=== PATIENT | male | born 1965 | race Caucasian/White ===

== ENCOUNTER 2019-01-31 03:09 | Inpatient (IN) | payer OTHER ==
[2019-01-31] VITALS (7 sets, daily range): BP systolic 123–155; BP diastolic 64–79
[~2019-01-31] VITALS: Ht 180.3 cm; Wt 111.7 kg
[2019-01-31] MEDS ORDERED: ONDANSETRON HCL INJ 2MG/ML 2ML 2 MG/ML VIAL IV STA (03:14)
[2019-01-31] MEDS ORDERED: PANTOPRAZOLE 40 MG 10ML VIAL IV STA (03:14)
[2019-01-31] MEDS ORDERED: MORPHINE SULFATE INJ 4 MG/ML INJ 1ML IV ONE (03:15)
[2019-01-31] MEDS ORDERED: DICYCLOMINE HCL 20 MG/2 ML VIAL IM ONE (03:15)
[2019-01-31] MEDS ORDERED: SODIUM CHLORIDE 0.9% 1000ML 1,000 ML IV ONE (03:15)
[2019-01-31 03:43] LABS: BASOPHILS % 0.2 % (0.0-1.0); EOSINOPHILS % 0.2 % (0.0-6.0); HEMATOCRIT 41.9 % (38.2-49.6); HEMOGLOBIN 14.5 g/dL (14.0-18.0); LYMPHOCYTES % 6.3 % (18.0-39.1); MEAN CORPUSCULAR HEMOGLOBIN 31.5 pg (28-32); MEAN CORPUSCULAR HGB CONC 34.6 g/dL (31-35); MEAN CORPUSCULAR VOLUME 91.1 fL (81-99); MONOCYTES # (AUTO) 0.9 (0.2-0.8); MONOCYTES % 5.7 % (4.4-11.3); NEUTROPHILS % 87.2 % (38.7-80.0); PLATELET COUNT 231 x10e3/uL (140-360); RED CELL DISTRIBUTION WIDTH 11.9 % (11.7-14.4)
[2019-01-31 04:00] LABS: ALANINE AMINOTRANSFERASE 16 IU/L (0-55); ALBUMIN 3.9 g/dL (3.5-5.0); ALBUMIN/GLOBULIN RATIO 1.3 (0.8-2.0); ALKALINE PHOSPHATASE 81 IU/L (40-150); AMYLASE 69 U/L (25-125); ANION GAP 11.6 mmol/L (8-16); BLOOD UREA NITROGEN 14 mg/dL (7-26); BUN/CREATININE RATIO 15 (6-25); CALCIUM 9.4 mg/dL (8.4-10.2); CARBON DIOXIDE 25 mmol/L (22-29); CHLORIDE 101 mmol/L (98-107); CREATINE KINASE 193 IU/L (30-200); CREATININE, SERUM 0.96 mg/dL (0.72-1.25); EST GLOMERULAR FILTRATION RATE > 60 ML/MIN (60-); GLUCOSE 143 mg/dL (74-118); LIPASE 18 U/L (8-78); POTASSIUM 3.6 mmol/L (3.5-5.1); SODIUM 134 mmol/L (136-145)
[2019-01-31 04:53] LABS: CLARITY,URINE CLEAR (CLEAR); COLOR,URINE YELLOW (YELLOW); KETONES,URINE 1+ (NEGATIVE); LEUKOCYTE ESTERASE ,URINE NEGATIVE (NEGATIVE); NITRITE,URINE NEGATIVE (NEGATIVE); PROTEIN,URINE DIPSTICK NEGATIVE (NEGATIVE); URINE UROBILINOGEN 0.2 mg/dL (0.2 - 1)
[2019-01-31 04:54] LABS: BACTERIA,URINE RARE /HPF; BILIRUBIN,URINE NEGATIVE (NEGATIVE); EPITHELIAL CELLS,URINE FEW /LPF; RBC,URINE 0-5 /HPF (0-5); WBC,URINE (MAN) 0-5 /HPF (0-5)
--- NOTE | 2019-01-31 04:56 | Diagnostic Imaging Report ---
EXAM: Gallbladder Ultrasound INDICATION: Right upper quadrant pain. COMPARISON: None. TECHNIQUE: Transverse and longitudinal images of the gallbladder were obtained. FINDINGS: Liver: 16.7 cm in length. Mild prominence of portal triads. Gallbladder: Stones/Sludge: Multiple shadowing echogenic foci consistent with cholelithiasis. Wall: 0.28 cm. Appearance: No wall thickening, pericholecystic fluid or hydrops. Sonographic Kirkpatrick's Sign: Negative Bile Ducts: Intrahepatic Ducts: No dilatation Extrahepatic Ducts: Common bile duct measures 0.4 cm, no dilatation Free Fluid: No ascites or pleural effusion Pancreas: Suboptimally visualized shadowing from overlying bowel gas. Right kidney: 13.3 cm in length. No hydronephrosis, nephrolithiasis or focal masses. Main portal vein: 0.9 cm in length. IMPRESSION: 1. Cholelithiasis. No evidence of cholecystitis. 2. Mild hepatomegaly. Mild diffuse prominence of portal triads nonspecific finding. It can be seen in acute hepatitis and passive hepatic congestion. Signed by: Dr. Pippa Mcneil M.D. on 01/31/2019 4:53 AM
[2019-01-31] MEDS ORDERED: CEFTRIAXONE SOD 1 GM/NS 50 ML 50 ML IV SCH (05:15)
[2019-01-31] MEDS ORDERED: HYDROMORPHONE 1MG/1ML INJ IV PRN (05:15)
[2019-01-31] MEDS ORDERED: ONDANSETRON HCL INJ 2MG/ML 2ML 2 MG/ML VIAL IV PRN ×4 (05:15→14:30)
--- OUTSIDE RECORDS SUMMARY | 2019-01-31 05:28 | XMS REPORT ---
Author Author [facility] Address Unknown Phone Unavailable Care Team Providers Care Property Portfolio Officer Name Role Phone CELY Anna MENSAH Unavailable Unavailable Problems This patient has no known problems. Allergies, Adverse Reactions, Alerts This patient has no known allergies or adverse reactions. Medications This patient has no known medications. Results Test Description Test Time Test Comments Text Results Atomic Results Result Comments US GALLBLADDER 2019-01-31 04:48:00 [place] [id number] Patient Name: MAKENNA ROJO MR #: [id number] : 1965 Age/Sex: 54/M Req #: [id number] Adm Physician: Ordered by: MAKENNA TA MD Report #: [id number] Location: ER Room/Bed: Procedure: [id number] US/US GALLBLADDER Exam Date: 01/31/19 Exam Time: 0405 REPORT STATUS: Signed EXAM: Gallbladder Ultrasound INDICATION: Right upper quadrant pain. COMPARISON: None. TECHNIQUE: Transverse and longitudinal images of the gallbladder were obtained. FINDINGS: Liver: 16.7 cm in length. Mild prominence of portal triads. Gallbladder: Stones/Sludge: Multiple shadowing echogenic foci consistent with cholelithiasis. Wall: 0.28 cm. Appearance: No wall thickening, pericholecystic fluid or hydrops. Sonographic Kirkpatrick's Sign: Negative Bile Ducts: Intrahepatic Ducts: No dilatation Extrahepatic Ducts: Common bile duct measures 0.4 cm, no dilatation Free Fluid: No ascites or pleural effusion Pancreas: Suboptimally visualized shadowing from overlying bowel gas. Right kidney: 13.3 cm in length. No hydronephrosis, nephrolithiasis or focal masses. Main portal vein: 0.9 cm in length. IMPRESSION: 1. Cholelithiasis. No evidence of cholecystitis. 2. Mild hepatomegaly. Mild diffuse prominence of portal triads nonspecific finding. It can be seen in acute hepatitis and passive hepatic congestion. Signed by: Dr. Pippa Adams M.D. on 01/31/2019 4:53 AM Dictated By: JARRET ADAMS MD, MD 2 Transcribed By: FATOU on 01/31/19452 COPY TO: MAKENNA TA MD
[2019-01-31] MEDS ORDERED: HYDROMORPHONE 2MG/ML 2 MG/ML ML IV PRN (07:15)
[2019-01-31] MEDS: SODIUM CHLORIDE 0.9% 1000ML 1,000 ML IV SCH ×2 (07:26→23:27)
--- NOTE | 2019-01-31 09:05 | NUR ---
patient resting in bed, Dr Belgica Johnson had rounds
[2019-01-31] MEDS ORDERED: HYDRALAZINE HCL 20 MG/ML VIAL IV PRN (10:15)
[2019-01-31] MEDS ORDERED: ACETAMINOPHEN 325 MG TAB PO PRN (10:15)
[2019-01-31] MEDS ORDERED: DIATRIZOATE MEGL/DIATRIZOA SOD 30 ML BTL PO ONE (10:22)
[2019-01-31 10:31] LABS: BASOPHILS % 0.2 % (0.0-1.0); EOSINOPHILS % 0.1 % (0.0-6.0); HEMATOCRIT 41.8 % (38.2-49.6); HEMOGLOBIN 14.3 g/dL (14.0-18.0); LYMPHOCYTES # (AUTO) 1.3 (1.0-3.2); LYMPHOCYTES % 7.7 % (18.0-39.1); MEAN CORPUSCULAR HEMOGLOBIN 31.4 pg (28-32); MEAN CORPUSCULAR HGB CONC 34.2 g/dL (31-35); MEAN CORPUSCULAR VOLUME 91.9 fL (81-99); MONOCYTES # (AUTO) 1.6 (0.2-0.8); MONOCYTES % 9.4 % (4.4-11.3); NEUTROPHILS # (AUTO) 13.7 (2.1-6.9); NEUTROPHILS % 82.2 % (38.7-80.0); PLATELET COUNT 224 x10e3/uL (140-360); RED BLOOD COUNT 4.55 x10e6/uL (4.3-5.7); RED CELL DISTRIBUTION WIDTH 11.9 % (11.7-14.4)
[2019-01-31 10:47] LABS: ANION GAP 11.4 mmol/L (8-16); BLOOD UREA NITROGEN 11 mg/dL (7-26); BUN/CREATININE RATIO 13 (6-25); CALCIUM 8.8 mg/dL (8.4-10.2); CARBON DIOXIDE 26 mmol/L (22-29); CHLORIDE 104 mmol/L (98-107); CREATININE, SERUM 0.88 mg/dL (0.72-1.25); EST GLOMERULAR FILTRATION RATE > 60 ML/MIN (60-); GLUCOSE 130 mg/dL (74-118); POTASSIUM 4.4 mmol/L (3.5-5.1); SODIUM 137 mmol/L (136-145)
[2019-01-31] MEDS ORDERED: HYDROMORPHONE 2MG/ML 2 MG/ML ML IV ONE (11:00)
[2019-01-31] MEDS ORDERED: IOPAMIDOL 370 MG/ML 200 ML INFUS..BTL INJ ONE (11:24)
[2019-01-31] MEDS ORDERED: SODIUM CHLORIDE 0.9% 50ML 50 ML ONE ×2 (11:24→12:51)
[2019-01-31] MEDS ORDERED: BUPIVACAINE 0.25%/EPI 30ML SDV INJ ONE (11:57)
[2019-01-31] MEDS ORDERED: METRONIDAZOLE 500MG/NS 100ML 100 ML IV ONE (12:00)
--- NOTE | 2019-01-31 12:01 | Diagnostic Imaging Report ---
EXAM: CT Abdomen and Pelvis WITH contrast INDICATION: Abdominal Pain COMPARISON: Gallbladder ultrasound 01/31/2019. TECHNIQUE: Abdomen and pelvis were scanned utilizing a multidetector helical scanner from the lung base to the pubic symphysis after administration of IV contrast. Coronal and sagittal reformations were obtained. Routine protocol was performed. Scan was performed when during portal venous phase. IV CONTRAST: 100 cc of Isovue 370 ORAL CONTRAST: Water and Gastrografin. COMPLICATIONS: None RADIATION DOSE: Total DLP: 841.2 mGy*cm CTDIvol has been reviewed. It is below the limits set by the Radiation Protocol Committee (RPC). FINDINGS: LINES and TUBES: None. LOWER THORAX: Unremarkable HEPATOBILIARY: Mild hypodensity in the liver adjacent to the gallbladder likely reflects edema. Hypodensity adjacent to the falciform ligament likely reflects focal fatty infiltration. GALLBLADDER: There are gallstones with mild gallbladder wall thickening, pericholecystic fluid and surrounding stranding. SPLEEN: No splenomegaly. PANCREAS: No focal masses or ductal dilatation. ADRENALS: No adrenal nodules KIDNEYS/URETERS: Kidneys enhance symmetrically. No evidence of hydronephrosis, solid mass, or stone. GI TRACT: Despite gastrografin administration reportedly, bowel loops are not well opacified. There is decompression of the distal colon with mild wall thickening within the distal descending and sigmoid colon as well as rectum. Minimal colonic wall thickening at the hepatic flexure likely is reactive secondary to surrounding gallbladder inflammation. Normal appendix. PELVIC ORGANS/BLADDER: Unremarkable. LYMPH NODES: No lymphadenopathy. VESSELS: Unremarkable. PERITONEUM / RETROPERITONEUM: No free air. There is a trace amount of fluid within the pelvis. BONES AND SOFT TISSUES: No acute osseous abnormality. Sclerotic lesion within the ischium likely represents a bone island. Degenerative changes at L5-S1. Bilateral pars defects at L5. CONCLUSION: CT findings are consistent with acute cholecystitis. No evidence of abscess. The above findings were discussed with Dr. Rock Johnson on 01/31/2019 at 11:55 AM, who responded indicating that the communication was understood. Decompressed distal colon with mild apparent wall thickening. While this could reflect decompression, suggest clinical correlation for colitis. Signed by: Dr. Henrique Polanco MD on 01/31/2019 11:58 AM
[2019-01-31] MEDS ORDERED: METRONIDAZOLE 500MG/NS 100ML 200 ML IV ONE (12:15)
[2019-01-31] MEDS ORDERED: HYDROGEN PEROXIDE 120 ML BTL ONE (12:21)
--- NOTE | 2019-01-31 12:37 | NUR ---
patient off the unit for procedure, stable, not in any distress, family at bed side
--- NOTE | 2019-01-31 13:35 | Consultation ---
DATE OF CONSULTATION: 01/31/2019 REASON FOR CONSULTATION: Acute cholecystitis. HISTORY OF PRESENT ILLNESS: The patient is an otherwise healthy 54-year-old male, admitted complaining of abdominal pain since the day prior to admission. The pain was located in the right upper quadrant and epigastric area. He had some vomiting. The pain persisted, reason for which he came to the emergency room. The patient gives a history of similar episodes some years ago, but there was no workup done. The patient in the emergency room denied any bleeding, any diarrhea, any GI problems. An ultrasound in the emergency room revealed cholelithiasis, no ductal dilatation. No evidence of acute cholecystitis. Because of the above, he underwent CT scan of the abdomen and pelvis with oral and IV contrast and cholecystitis acute type was found despite of the ultrasound that failed to reveal that. PAST MEDICAL HISTORY: Unremarkable. PAST SURGICAL HISTORY: Significant for eye surgery and hemorrhoidectomy. SOCIAL HISTORY: He does not drink. Does not smoke. REVIEW OF SYSTEMS: Significant for what has been stated. PHYSICAL EXAMINATION: GENERAL: Reveals a 54-year-old male, in moderate acute distress. He looks uncomfortable, complains of right upper quadrant pain. HEAD, EYES, EARS, NOSE, AND THROAT: Unremarkable. LUNGS: Clear. HEART: Regular rhythm. ABDOMEN: There is right upper quadrant tenderness on deep palpation. No rebound. LABORATORY DATA: Admission labs revealed a white count of 16,000. Liver chemistries were normal. ASSESSMENT: Acute cholecystitis secondary to cholelithiasis. PLAN: To proceed with emergent laparoscopic cholecystectomy, possible open cholecystectomy. The patient is aware of increased risk due to the acuteness of the situation. He and his gave an informed consent. MD GABRIELLE Baker/SHUKRI /[id number]
[2019-01-31] MEDS: PANTOPRAZOLE 40 MG 10ML VIAL IV SCH (14:30)
[2019-01-31] MEDS ORDERED: PROMETHAZINE HCL (IM) 25 MG/ML VIAL IM PRN (14:30)
[2019-01-31] MEDS: CEFTRIAXONE SOD 2 GM/NS 100 ML 100 ML IV SCH (14:30)
[2019-01-31] MEDS ORDERED: HYDROCODONE/APAP 7.5MG-325MG 1 EA TAB PO PRN (14:30)
[2019-01-31] MEDS ORDERED: MORPHINE SULFATE INJ 4 MG/ML INJ 1ML ONE (15:16)
--- NOTE | 2019-01-31 15:55 | NUR ---
patient back in room from procedure, 4 incision site on abdomen dressing is intact, on ANISH drain, rating pain 5/10 on abdomen, denies any chest pain or SOB, keep monitoring, call light in reach, family at bed side
--- NOTE | 2019-01-31 16:05 | Operative Report ---
DATE OF PROCEDURE: SURGEON: Rock Johnson MD PREOPERATIVE DIAGNOSIS: Acute cholecystitis secondary to cholelithiasis. POSTOPERATIVE DIAGNOSIS: Acute cholecystitis secondary to cholelithiasis. PROCEDURE PERFORMED: Laparoscopic cholecystectomy. MANAGER TRAFFIC: ESTIMATED BLOOD LOSS: Less than 75 mL. DRAINS: One 10-mm flat Pasquale-Fernández drain. COMPLICATIONS: None. INDICATION AND FINDINGS: A 54-year-old male admitted to the hospital through the emergency room, Dr. Ashlyn fritz, complained of abdominal pain since the day prior to admission. Workup revealed acute cholecystitis. Liver chemistries were normal. He had by ultrasound gallstones and no ductal dilatation and no evidence of acute cholecystitis and by CT scan, he had cholelithiasis and acute cholecystitis. INTRAOPERATIVE FINDINGS: Cholelithiasis and acute cholecystitis with severe inflammatory changes around the gallbladder and right upper quadrant secondary to the above. DESCRIPTION OF THE PROCEDURE: With the patient lying on the operating table in supine position after administration of general anesthesia, he was prepped and draped for laparoscopic cholecystectomy. The procedure was begun by establishing the pneumoperitoneum in the umbilical site after stab wound was made in the location and a saline drop test was performed. Pneumoperitoneum was insufflated to 15 mmHg, then the 10-11 trocar placed in that location. The patient rotated to the left with the head up and then we placed a 10-mm trocar in that location. Finally, two lateral working ports, right midclavicular line and right anterior axial line using 5-mm trocars. Immediately came into view, an acutely distended gallbladder with surrounding inflammatory changes around the colon, in the area of the transverse and hepatic flexure. The omentum was stuck to the gallbladder. We that and then we went ahead and aspirated and decompressed the gallbladder because it was tense until we were able to grasp the gallbladder. After we lysed the omental adhesions to the gallbladder, we exposed the hepatoduodenal ligament by placing the patient in the head up to the left rotated position and then we began the dissection exposing the neck of the gallbladder where there was a large stone there and then continued the dissection on the hepatoduodenal ligament close to the gallbladder until we identified the cystic duct, which was very small and nondilated as it was the common bile duct. We then went ahead and clipped the cystic duct, which also was attached to the gallbladder with three clips distally and one proximally and then we transected it and then we took the gallbladder down from the liver bed using a combination of hydrodissection, traction, countertraction as well as cautery until we detached the gallbladder, placed it in an endobag, and removed through the umbilical port. Under direct vision with the camera, we placed Vicryl to close the hole in the umbilical fascia. At this point, we introduced the pneumoperitoneum and inspected the operative field. We removed all the blood and all clot, established hemostasis with electrocautery and then after we were satisfied with the hemostasis, after we had removed all the fluid that was bloody, we placed 10-mm flat Pasquale-Fernández in the right upper quadrant area and brought it out through the most lateral right 5-mm trocar in the right anterior axillary line and secured there with 2-0 silk and then we released the pneumoperitoneum, tied the umbilical sutures and then closed the subxiphoid port using 3-0 Vicryl as well as the umbilical site. The skin of all the ports was closed using shae. 0.25% Marcaine with epinephrine was given as local block at all the port sites. Sterile dressing was applied. The patient tolerated the procedure well, taken to the recovery room in stable condition. The family informed of his intraoperative findings. They are aware that there are increased chances of complications due to the acuteness of the situation. MD GABRIELLE Baker/SHUKRI /[id number]
[2019-01-31] MEDS ORDERED: ROCURONIUM BROMIDE 10 MG/ML 5ML VIAL ONE (17:01)
[2019-01-31] MEDS ORDERED: GLYCOPYRROLATE INJ 1MG/ 5 ML SYR ONE (17:01)
[2019-01-31] MEDS ORDERED: DEXAMETHASONE SOD PHOS INJ 4 MG/ML VIAL ONE (17:01)
[2019-01-31] MEDS ORDERED: LIDOCAINE HCL 2% LOCAL INJ 5 ML SDV VIAL INJ ONE (17:01)
[2019-01-31] MEDS ORDERED: NEOSTIGMINE 5 MG/5ML SYR ONE (17:01)
[2019-01-31] MEDS ORDERED: SEVOFLURANE INHAL SOLN 250 ML PEN BTL ONE (17:01)
[2019-01-31] MEDS ORDERED: PROPOFOL IV EMULSION 10 MG/ML 20 ML VIAL ONE (17:01)
[2019-01-31] MEDS ORDERED: ONDANSETRON HCL INJ 2MG/ML 2ML 2 MG/ML VIAL ONE (17:01)
[2019-01-31] MEDS: FAMOTIDINE 20 MG/2 ML VIAL IV SCH (17:09)
[2019-01-31] MEDS: METRONIDAZOLE 500MG/NS 100ML 100 ML IV SCH (17:09)
[2019-01-31] MEDS ORDERED: MIDAZOLAM HCL 2 MG/2 ML VIAL ONE (17:35)
[2019-01-31] MEDS ORDERED: FENTANYL CITRATE/PF 100MCG/2 ML INJ ONE (17:35)
--- NOTE | 2019-01-31 19:00 | NUR ---
RECEIVED REPORT FROM DAY NURSE. PATIENT IS RESTING COMFORTABLY IN BED. BED IS IN LOWEST POSITION AND CALL KHALIL IS WITHIN REACH. WILL CONTINUE TO MONITOR PATIENT.
[2019-02-01] VITALS (7 sets, daily range): BP systolic 121–137; BP diastolic 69–81
[2019-02-01] MEDS: METRONIDAZOLE 500MG/NS 100ML 100 ML IV SCH ×5 (00:53→23:13)
[2019-02-01 05:28] LABS: BASOPHILS % 0.1 % (0.0-1.0); EOSINOPHILS % 0.1 % (0.0-6.0); HEMATOCRIT 38.3 % (38.2-49.6); LYMPHOCYTES # (AUTO) 1.6 (1.0-3.2); LYMPHOCYTES % 11.4 % (18.0-39.1); MEAN CORPUSCULAR HEMOGLOBIN 31.3 pg (28-32); MEAN CORPUSCULAR HGB CONC 33.9 g/dL (31-35); MEAN CORPUSCULAR VOLUME 92.3 fL (81-99); MONOCYTES # (AUTO) 1.6 (0.2-0.8); MONOCYTES % 11.3 % (4.4-11.3); NEUTROPHILS # (AUTO) 10.7 (2.1-6.9); NEUTROPHILS % 76.6 % (38.7-80.0); PLATELET COUNT 193 x10e3/uL (140-360); RED BLOOD COUNT 4.15 x10e6/uL (4.3-5.7)
[2019-02-01 05:52] LABS: ALANINE AMINOTRANSFERASE 31 IU/L (0-55); ALBUMIN 2.9 g/dL (3.5-5.0); ALBUMIN/GLOBULIN RATIO 1.1 (0.8-2.0); ALKALINE PHOSPHATASE 56 IU/L (40-150); AMYLASE 38 U/L (25-125); ANION GAP 10.8 mmol/L (8-16); BLOOD UREA NITROGEN 9 mg/dL (7-26); BUN/CREATININE RATIO 10 (6-25); CALCIUM 8.1 mg/dL (8.4-10.2); CARBON DIOXIDE 25 mmol/L (22-29); CHLORIDE 103 mmol/L (98-107); CREATININE, SERUM 0.91 mg/dL (0.72-1.25); EST GLOMERULAR FILTRATION RATE > 60 ML/MIN (60-); GLUCOSE 106 mg/dL (74-118); LIPASE 9 U/L (8-78); POTASSIUM 3.8 mmol/L (3.5-5.1); SODIUM 135 mmol/L (136-145)
--- NOTE | 2019-02-01 07:12 | NUR ---
Walking rounds done. Patient is awake and alert x3 in NAD. He denies any pain at this time. POC discussed. Patient was instructed to call for assistance and verbalized understanding. Bed in lowest position, locked, and call aleman within reach.
--- NOTE | 2019-02-01 07:18 | NUR ---
report given to day nurse. patient is resting comfortably in bed. bed is in lowest position and call aleman is within reach.
[2019-02-01] MEDS: SODIUM CHLORIDE 0.9% 1000ML 1,000 ML IV SCH ×3 (09:09→23:14)
[2019-02-01] MEDS: FAMOTIDINE 20 MG/2 ML VIAL IV SCH ×2 (09:09→17:06)
[2019-02-01 10:48] LABS: ANISOCYTOSIS SLIGHT; LYMPHOCYTES % (MANUAL) 12 % (19-48); METAMYELOCYTES % (MANUAL) 1 % (0-0); MONOCYTES % (MANUAL) 10 % (3.4-9.0); NEUTROPHILS % (MANUAL) 77 % (40-74); PLATELET ESTIMATE ADEQUATE; PLATELET MORPHOLOGY COMMENT NORMAL; RBC MORPHOLOGY COMMENT NORMAL
[2019-02-01] MEDS: PANTOPRAZOLE 40 MG 10ML VIAL IV SCH (13:59)
[2019-02-01] MEDS: CEFTRIAXONE SOD 2 GM/NS 100 ML 100 ML IV SCH (14:06)
[2019-02-01 15:49] LABS: BASOPHILS % 0.1 % (0.0-1.0); EOSINOPHILS # (AUTO) 0.1 (0.0-0.4); EOSINOPHILS % 0.4 % (0.0-6.0); HEMATOCRIT 39.3 % (38.2-49.6); HEMOGLOBIN 13.3 g/dL (14.0-18.0); LYMPHOCYTES # (AUTO) 1.8 (1.0-3.2); LYMPHOCYTES % 13.7 % (18.0-39.1); MEAN CORPUSCULAR HEMOGLOBIN 31.2 pg (28-32); MEAN CORPUSCULAR HGB CONC 33.8 g/dL (31-35); MEAN CORPUSCULAR VOLUME 92.3 fL (81-99); MONOCYTES # (AUTO) 1.4 (0.2-0.8); MONOCYTES % 10.4 % (4.4-11.3); PLATELET COUNT 212 x10e3/uL (140-360); RED BLOOD COUNT 4.26 x10e6/uL (4.3-5.7); RED CELL DISTRIBUTION WIDTH 12.2 % (11.7-14.4)
[2019-02-01] MEDS: OYST-CAL-D 500MG TABLET PO SCH (17:06)
[2019-02-02 00:24] VITALS: BP 124/78
[2019-02-02 02:43] LABS: BASOPHILS % 0.3 % (0.0-1.0); EOSINOPHILS # (AUTO) 0.1 (0.0-0.4); EOSINOPHILS % 1.1 % (0.0-6.0); HEMOGLOBIN 12.1 g/dL (14.0-18.0); LYMPHOCYTES # (AUTO) 2.1 (1.0-3.2); MEAN CORPUSCULAR HEMOGLOBIN 31.2 pg (28-32); MEAN CORPUSCULAR HGB CONC 33.6 g/dL (31-35); MEAN CORPUSCULAR VOLUME 92.8 fL (81-99); MONOCYTES # (AUTO) 1.2 (0.2-0.8); MONOCYTES % 11.5 % (4.4-11.3); NEUTROPHILS # (AUTO) 6.6 (2.1-6.9); NEUTROPHILS % 65.7 % (38.7-80.0); PLATELET COUNT 178 x10e3/uL (140-360); RED BLOOD COUNT 3.88 x10e6/uL (4.3-5.7); RED CELL DISTRIBUTION WIDTH 12.1 % (11.7-14.4)
[2019-02-02 02:51] LABS: ANION GAP 10.6 mmol/L (8-16); CALCIUM 7.7 mg/dL (8.4-10.2); CARBON DIOXIDE 21 mmol/L (22-29); CHLORIDE 106 mmol/L (98-107); CREATININE, SERUM 0.79 mg/dL (0.72-1.25); EST GLOMERULAR FILTRATION RATE > 60 ML/MIN (60-); GLUCOSE 93 mg/dL (74-118); MAGNESIUM 1.9 MG/DL (1.3-2.1); POTASSIUM 3.6 mmol/L (3.5-5.1); SODIUM 134 mmol/L (136-145)
[2019-02-02 03:11] LABS: BLOOD UREA NITROGEN 9 mg/dL (7-26); BUN/CREATININE RATIO 12 (6-25)
[2019-02-02 05:01] VITALS: BP 130/74
[2019-02-02] MEDS: METRONIDAZOLE 500MG/NS 100ML 100 ML IV SCH ×2 (05:03→11:36)
[2019-02-02 07:15] VITALS: BP 127/78
--- NOTE | 2019-02-02 07:15 | NUR ---
RN performed comprehensive assessment on patient. Alert and oriented x3 with vital signs within normal parameter. Patient reported no pain.
[2019-02-02 07:47] VITALS: BP 127/78
[2019-02-02] MEDS: FAMOTIDINE 20 MG/2 ML VIAL IV SCH (08:42)
[2019-02-02] MEDS: OYST-CAL-D 500MG TABLET PO SCH (08:42)
[2019-02-02] MEDS ORDERED: TYLENOL # 31 EA PO (09:07)
--- NOTE | 2019-02-02 11:25 | NUR ---
Dr. Johnson at bedside, patient to be discharged after receiving Flagyl IV. Patient will go home with ANISH drain. Patient instructed only to use sponge bath at home until MD visit on 02/06/2018
[2019-02-02 12:13] VITALS: BP 120/72
[2019-02-02] MEDS ORDERED: AUGMENTIN 500-1 EACH PO (12:46)
--- NOTE | 2019-02-02 14:41 | NUR ---
SOCIAL WORK INITIAL ASSESSMENT Strip Polisher to bedside to discuss plan of care with patient/family. CM/SW role and care transitions discussed. Anticipated discharge plan discussed along with duration of care. CM/SW discussed patients right to make decisions in care. CM/SW work hours given. Patient lives: IN HOUSE WITH FAMILY Admit/Transfer: VIA ED POA/Emergency contact: SUSANA [phone] Current/Previous Home Health: NONE PCP/Follow-up Care: BONY Current/Previous DME: NONE Other Services: NONE Employment Status: [employer] Areas of Concerns: NONE Referral Needs: NONE Education Needs: NONE IMM/CARREON given and signed (if applicable): NA Goal for discharge: RETURN HOME CM/SW left business card at the bedside with contact information. Name and number was also written on the patients whiteboard. Patient verbalized understanding of discussion. CM will follow-up with ongoing discharge and transition of care needs.
--- NOTE | 2019-02-03 03:09 | Discharge Summary ---
ADMISSION DIAGNOSES: Abdominal pain, cholelithiasis, hyponatremia, obesity, elevated BP without history of hypertension. DISCHARGE DIAGNOSES: Abdominal pain, cholelithiasis, hyponatremia, obesity, elevated BP without history of hypertension. HISTORY: None. SURGICAL HISTORY: Right eye laceration and hemorrhoidectomy. FAMILY HISTORY: The patient's mom and dad had cancer. SOCIAL HISTORY: The patient admits to smokeless tobacco use and occasional alcohol use. HOSPITAL COURSE: A 54-year-old male complains of epigastric pain, described as constant aching soreness that began prior to admission. Pain worsened with food and drinks and improved with IV pain medications. He admits to associated nausea and vomiting, but denies diarrhea and fever. On admission, the patient had ultrasound of the bladder that showed cholelithiasis with no evidence of cholecystitis. CT of the abdomen shows acute cholecystitis, no evidence of abscess. The patient had a lap nazia done on 01/31/2019 with placement of a ANISH drain. The patient tolerated procedure well. Diet was advanced. The patient is passing gas and pain is improved. He will discharge home with primary care . He will follow up with surgery as discussed. The patient understands discharge instructions and agrees to plan. Vital signs stable, patient afebrile. Dictated by Deanna Beard NP MD INES Hernandez/SHUKRI /[id number]
== END 2019-02-02 13:05 | disposition home or self-care (01) | DRG 418 ==
LOC: ER 03:09 → ERHOLD 05:24 → IMCU 06:23 → OBSVTOIN 14:22
PROVIDERS: ADMIT Internal Medicine; ATTEND Internal Medicine
PROC: 0FT44ZZ Resection of Gallbladder, Percutaneous Endoscopic Approach (ICD-10-PCS; principal; 2019-01-31 12:52)
DX: K80.00 Calculus of gallbladder with acute cholecystitis without obstruction (principal); E87.1 Hypo-osmolality and hyponatremia; F17.290 Nicotine dependence, other tobacco product, uncomplicated; E66.9 Obesity, unspecified; Z68.34 Body mass index [BMI] 34.0-34.9, adult; R03.0 Elevated blood-pressure reading, without diagnosis of hypertension
CPT/HCPCS: 36415; 74177; 76705; 80048; 80053; 81001; 82150; 82550; 82553; 83036; 83690; 83735; 84484; 85025; 88304; 93005; 96367; 96374; 96375; 96376; 99284; C1766; J0500; J0696; J1100; J2001; J2250; J2270; J2405; J7030; Q9967